=== PATIENT | male | born 1990 | race Hispanic/Latino ===

== ENCOUNTER 2024-07-12 08:47 | Emergency (ER) | payer OTHER, SELFPAY ==
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
[2024-07-12 08:49] VITALS: BP 132/73; PULSE 98; RESP 20; TEMP 36.4; O2SAT 100
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
== END 2024-07-12 11:31 | disposition left against medical advice (07) ==
PROVIDERS: Emergency Provider Registered Nurse
DX: S13.4XXA Sprain of ligaments of cervical spine, initial encounter (principal); V43.52XA Car driver injured in collision with other type car in traffic accident, initial encounter
CPT/HCPCS: 71250; 72125; 72128; 72131; 73590; 74176; 99199